=== PATIENT | female | born 2000 | race Caucasian/White ===

== ENCOUNTER 2020-03-16 21:54 | Emergency (ER) | payer OTHER ==
[~2020-03-16] VITALS: Ht 177.8 cm; Wt 66.7 kg
[2020-03-16 22:02] VITALS: BP 134/92
--- NOTE | 2020-03-16 22:28 | Emergency Room Report ---
History of Present Illness General Chief Complaint: Female Urogenital Problems Source: Patient Present Illness HPI Disclaimer: Please note that this report is being documented using [employer]AG[employer] technology. This can lead to erroneous entry secondary to incorrect interpretation by the dictating instrument. HPI: 18-year-old female presents requesting STD testing. She tested positive for oral chlamydia 1 month ago along with her sexual partner. She was treated and symptoms resolved however her partner again began to have symptoms earlier this week. They do not use barrier contraception. She had episode of dysuria and hematuria this morning. She was seen at a [facility] and treated with Macrobid for urinary tract infection. She has been taking the antibiotics today as instructed. She is requesting testing for chlamydia along with her boyfriend who also presents to the ED. Denies vaginal bleeding or vaginal discharge. Denies fever, chills, vomiting. Denies other sexual contacts. Denies possibility of . PMH: Previous STI PSH: Reviewed Allergies: Amoxicillin, clindamycin Social Hx: Reviewed Allergies: Coded Allergies: AMOXICILLIN (Verified Allergy, Unknown, 03/16/20) CLAVULANIC ACID (Verified Allergy, Unknown, 03/16/20) CLINDAMYCIN (Verified Allergy, Unknown, 03/16/20) COVID-19 Screening Contact w/high risk pt: No Experienced COVID-19 symptoms?: No COVID-19 Testing performed [employer]: No Patient History Last Menstrual Period: ON BIRTHCONTROL : 0 Para: 0 Nursing Documentation-PMH Past Medical History: No Stated History Review of Systems All Other Systems: negative except mentioned in HPI Physical Exam Vital Signs Date Time Temp Pulse Resp B/P (MAP) Pulse Ox O2 Delivery O2 Flow Rate FiO2 03/16/20 22:01 98.8 97 20 134/92 (106) 99 Room Air General: Awake and alert, no acute distress HEENT: NC/AT. EOMI. Resp: Normal work of breathing Skin: Intact. No abrasions, laceration or rash over the exposed skin MSK: Normal tone and bulk. Moving all extremities. No obvious deformity. Neuro: Awake and alert. Mentating appropriately Medical Decision Making Diagnostic Impression: Primary Impression: STD exposure ER Course 19-year-old female presents requesting testing for chlamydia. Patient tested positive for urinary tract infection this morning started on Macrobid which she has been taking. Denies possibility of and declined hCG test. Denies other symptoms at this time but boyfriend experiencing similar symptoms to prior chlamydial infection. We treat empirically with ceftriaxone and azithromycin and referred to outpatient STD clinic for definitive testing. Instructed both partners that they should not have any sexual contact until this testing is completed and they should inform any other sexual partners they might have of any pertinent test results. No other concerns or symptoms from patient at this time. She is stable for outpatient follow-up. Referred to her PMD and STD clinic. Discussed reasons to return to the ED. She understands and agrees with this treatment plan. Last Vital Signs Date Time Temp Pulse Resp B/P (MAP) Pulse Ox O2 Delivery O2 Flow Rate FiO2 03/16/20 22:01 98.8 97 20 134/92 (106) 99 Room Air Disposition: HOME, SELF-CARE Condition: Stable Referrals: [facility] *Patients are seen by appointment only* [facility] [place] [facility] [place] [facility] [place] Patient Instructions: Chlamydia, Female Additional Instructions: Continue the antibiotics prescribed to you earlier today for treatment of urinary tract infection. Please follow-up with one of the clinics listed here in your discharge paperwork for STD testing including HIV, hepatitis, herpes virus, syphilis, chlamydia, gonorrhea among others. Refrain from sexual contact until you obtain these results. Notify all sexual partners of any positive results. Return to the emergency department new or worsening symptoms. Please follow-up with your primary care doctor in the next 1 to 3 days to discuss this emergency department visit and for reevaluation. If you have any new or worsening symptoms please return to the emergency department for reevaluation. Please note that this report is being documented using [email or web address] technology. This can lead to erroneous entry secondary to incorrect interpretation by the dictating instrument. Baltazar Duran MD Mar 16, 2020 22:28
[2020-03-16] MEDS ORDERED: Azithromycin 250mg tab ORAL ONE (22:30)
[2020-03-16] MEDS ORDERED: Lidocaine 1% MPF 10mg/ml 5ml INJ ONE (22:30)
[2020-03-16 23:00] VITALS: BP 134/92
== END 2020-03-16 23:00 | disposition home or self-care (01) ==
LOC: EMR 22:17
DX: Z20.2 Contact with and (suspected) exposure to infections with a predominantly sexual mode of transmission (principal); Z88.0 Allergy status to penicillin; Z79.3 Long term (current) use of hormonal contraceptives
CPT/HCPCS: 96372; 96374; 99284; J0696